=== PATIENT | female | born 1950 | race Hispanic/Latino ===

== ENCOUNTER 2022-07-04 19:42 | Emergency (ER) | payer OTHER ==
[~2022-07-04] VITALS: Ht 152.4 cm; Wt 63.5 kg
[2022-07-04] MEDS ORDERED: IBUPROFEN 600 MG TAB PO STA (20:13)
== END 2022-07-04 22:30 | disposition home or self-care (01) ==
LOC: FSED 20:11
DX: S93.492A Sprain of other ligament of left ankle, initial encounter (principal); S93.692A Other sprain of left foot, initial encounter; X50.1XXA Overexertion from prolonged static or awkward postures, initial encounter; Y92.511 Restaurant or cafe as the place of occurrence of the external cause; I10 Essential (primary) hypertension; E11.9 Type 2 diabetes mellitus without complications; E78.5 Hyperlipidemia, unspecified; R50.9 Fever, unspecified
CPT/HCPCS: 99283